=== PATIENT | male | born 1980 | race Caucasian/White ===

== ENCOUNTER → 2016-05-31 | Outpatient (CLI) | payer OTHER ==
[~2016-05-31] MED LIST: HYDR-3498 PO; IBUP-1542 PO; IOHEXOL 100 ML ONE; IOHEXOL 350MG/ML 50 ML BTL ONE; SOD CHLORIDE 0.9% 100 ML ONE
--- NOTE | 2016-05-31 14:34 | RADRPT ---
PROCEDURE: CTA Chest. CLINICAL INDICATION: Pulmonary embolism TECHNIQUE: The study was performed utilizing a a multidetector CT scanner. Direct spiral 1 mm axia l sections were obtained from the thoracic inlet to the upper abdomen with the use of 100 cc of Omni paque 350 nonionic intravenous contrast material and reformatted at 3 mm. Coronal reformations were obtained. The images were reviewed on a PACS workstation. CT D I 33 mCi. Dose 560 mCi per centimeter COMPARISON: No prior studies are available for comparison. FINDINGS: The aorta is without aneurysmal dilatation or dissection. There are small lymph nodes seen within th e mediastinum which are not pathologic by size criteria. The central pulmonary arteries are without evidence for filling defect to suggest pulmonary embolus or thrombus. There is no evidence for an in filtrate. No abnormal soft tissue masses or nodular densities are visualized. The osseous structures are unremarkable. Scans through the upper abdomen reveals that the upper liver is unremarkable. The adrenal glands have a normal appearance. The upper kidneys are functional and are without evidence for obstruction. IMPRESSION: No CT evidence for pulmonary embolus. .Daryl Xie MD, MD Date Time Electronically viewed and signed by .Daryl Xie MD, MD on 05/31/2016 14:33 .A/
== END | disposition home or self-care (01) ==
LOC: C/S 08:52
PROVIDERS: ATTEND Internal Medicine
DX: Z86.711 Personal history of pulmonary embolism (principal)
CPT/HCPCS: 71275; Q9967; Z7610